=== PATIENT | female | born 1970 | race African-American/Black ===

== ENCOUNTER 2022-07-21 08:05 | Emergency (ER) | payer MEDICAID, OTHER ==
[~2022-07-21] VITALS: Ht 160 cm; Wt 74.7 kg
[2022-07-21] MEDS ORDERED: KETOROLAC TROMETH 60MG/2ML VIAL IM ONE (10:15)
[2022-07-21 10:28] VITALS: BP 138/87
[2022-07-21] MEDS ORDERED: METH750T22 PO (10:38)
[2022-07-21] MEDS ORDERED: KETO10TA PO (10:38)
== END 2022-07-21 10:54 | disposition home or self-care (01) ==
LOC: ER 08:05
DX: M54.50 Low back pain, unspecified (principal); M54.10 Radiculopathy, site unspecified; I10 Essential (primary) hypertension
CPT/HCPCS: 96372; 99283; J1885

== ENCOUNTER 2022-08-18 13:05 | Emergency (ER) | payer MEDICAID ==
[~2022-08-18] VITALS: Ht 160 cm; Wt 73.3 kg
[~2022-08-18 13:05] MED LIST: KETO10TA PO; METH750T22 PO
[2022-08-18 16:10] VITALS: BP 143/95
[2022-08-18] MEDS ORDERED: CEPH500C PO (16:24)
[2022-08-18] MEDS ORDERED: IBUP800T27 PO (16:24)
[2022-08-18] MEDS ORDERED: IBUPROFEN 800 MG TAB PO ONE (16:30)
== END 2022-08-18 16:32 | disposition home or self-care (01) ==
LOC: ER 13:05
DX: S92.514A Nondisplaced fracture of proximal phalanx of right lesser toe(s), initial encounter for closed fracture (principal); S91.131A Puncture wound without foreign body of right great toe without damage to nail, initial encounter; I10 Essential (primary) hypertension; Z79.899 Other long term (current) drug therapy; W20.8XXA Other cause of strike by thrown, projected or falling object, initial encounter; Y93.89 Activity, other specified; Y92.89 Other specified places as the place of occurrence of the external cause; Y99.8 Other external cause status
CPT/HCPCS: 73630

== ENCOUNTER 2023-11-15 07:46 | Emergency (ER) | payer MEDICAID ==
[~2023-11-15] VITALS: Ht 162.6 cm; Wt 61.3 kg
[~2023-11-15 07:46] MED LIST changes: +CEPH500C PO; +IBUP-1456 PO; +METH-1182 PO; -METH750T22 PO
[2023-11-15 08:19] LABS: Urine Bacteria NONE SEEN /hpf (None Seen); Urine Blood 3+ /uL (Negative); Urine Clarity HAZY (Clear); Urine Protein, UAD 1+ (Negative); Urine Specific Gravity 1.017 (1.001-1.035); Urine Urobilinogen Normal (Negative); Urine WBC 112 /hpf (0 - 5)
[2023-11-15 08:20] LABS: Urine Color RED (Yellow)
[2023-11-15 08:25] LABS: Basophils # (auto) 0 10 ^3/uL (0-0.2); Basophils % (auto) 0.6 % (0.0-2.0); Eosinophils # (auto) 0.1 10 ^3/uL (0-0.8); Lymphocytes # (auto) 2.8 10 ^3/uL (0.4-5.4); Monocytes # (auto) 0.4 10 ^3/uL (0-1.3)
[2023-11-15 08:27] LABS: Eosinophils % (auto) 0.7 % (0.0-7.0); Hematocrit 39.5 % (36.0-46.0); Hemoglobin 12.7 g/dL (12.2-16.2); Lymphocytes % (auto) 35.7 % (10.0-50.0); Mean Corpuscular Hemoglobin 26.1 pg (28.0-32.0); Mean Corpuscular Hgb Conc. 32.2 g/dL (32.0-36.0); Mean Corpuscular Volume 80.9 fL (80.0-100.0); Monocytes % (auto) 5.4 % (0.0-12.0); Neutrophils # (auto) 4.5 10 ^3/uL (1.6-8.6); Neutrophils % (auto) 57.6 % (37.0-80.0); Nucleated Red Blood Cells % 0.2 %; Red Blood Cells 4.88 10^6/uL (4.0-5.20); Red Cell Distribution Width 16.4 % (11.8-14.3); White Blood Cell 7.7 10^3/uL (4.4-10.8)
[2023-11-15 08:28] LABS: Chloride 109 mmol/L (98-107); Potassium 3.6 mmol/L (3.5-5.1); Sodium 141 mmol/L (136-145)
[2023-11-15 08:29] LABS: Anion Gap 4 (5-15); Calcium 9.4 mg/dL (8.5-10.1); Carbon Dioxide 28 mmol/L (20-30)
[2023-11-15 08:34] LABS: Blood Urea Nitrogen 16 mg/dL (9-23); Glucose 89 mg/dL (74-106)
[2023-11-15] MEDS: HYDROcodone-ACET 10/325MG TAB PO ONE (09:08)
[2023-11-15] MEDS: HYDROcodone-ACET 5/325MG TAB PO ONE (09:13)
[2023-11-15] MEDS ORDERED: NITR-87 PO (09:50)
[2023-11-15 10:49] VITALS: BP 140/94; PULSE 73; RESP 17; TEMP 98.7; O2SAT 99
[2023-11-15] MEDS: cefTRIAXone SOD 1,000 MG VL IM ONE (10:53)
== END 2023-11-15 10:54 | disposition home or self-care (01) ==
LOC: ER 07:46 → EDBD 07:46 → EDUNIT# 07:46 → ER 10:51
DX: N93.9 Abnormal uterine and vaginal bleeding, unspecified (principal); R10.2 Pelvic and perineal pain; N39.0 Urinary tract infection, site not specified; I10 Essential (primary) hypertension; Z79.1 Long term (current) use of non-steroidal anti-inflammatories (NSAID); Z79.899 Other long term (current) drug therapy; Z88.8 Allergy status to other drugs, medicaments and biological substances
CPT/HCPCS: 36415; 80048; 81001; 84702; 85025; 96372; 99283; J0696

== ENCOUNTER 2024-01-25 09:31 | Inpatient (IN) | payer MEDICAID ==
[~2024-01-25] VITALS: Ht 160 cm; Wt 62.9 kg
[~2024-01-25 09:31] MED LIST changes: +NITR-87 PO
[2024-01-25] MEDS: cloNIDine HCL 0.1 MG TAB PO ONE (10:00)
[2024-01-25] MEDS: amLODIPine BESYLATE 5 MG TAB PO ONE (10:04)
[2024-01-25] MEDS: ASPirin 81 mg TAB PO ONE (10:08)
[2024-01-25 10:10] LABS: Basophils # (auto) 0 10 ^3/uL (0-0.2); Basophils % (auto) 0.6 % (0.0-2.0); Eosinophils # (auto) 0.1 10 ^3/uL (0-0.8); Eosinophils % (auto) 0.9 % (0.0-7.0); Hematocrit 40.2 % (36.0-46.0); Hemoglobin 13.6 g/dL (12.2-16.2); Lymphocytes # (auto) 3.7 10 ^3/uL (0.4-5.4); Lymphocytes % (auto) 49.9 % (10.0-50.0); Mean Corpuscular Hemoglobin 27.5 pg (28.0-32.0); Mean Corpuscular Hgb Conc. 33.7 g/dL (32.0-36.0); Mean Corpuscular Volume 81.5 fL (80.0-100.0); Monocytes # (auto) 0.4 10 ^3/uL (0-1.3); Monocytes % (auto) 6.1 % (0.0-12.0); Neutrophils # (auto) 3.1 10 ^3/uL (1.6-8.6); Neutrophils % (auto) 42.5 % (37.0-80.0); Nucleated Red Blood Cells % 0.1 %; Red Blood Cells 4.93 10^6/uL (4.0-5.20); Red Cell Distribution Width 16.6 % (11.8-14.3); White Blood Cell 7.3 10^3/uL (4.4-10.8)
[2024-01-25 10:21] LABS: Urine Bacteria FEW /hpf (None Seen); Urine Blood Negative /uL (Negative); Urine Budding Yeast OCCASIONAL /hpf (None Seen); Urine Clarity Clear (Clear); Urine Color Yellow (Yellow); Urine Protein, UAD Negative (Negative); Urine Specific Gravity 1.016 (1.001-1.035); Urine Urobilinogen Normal (Negative); Urine WBC 1 /hpf (0 - 5)
[2024-01-25 10:22] LABS: Chloride 109 mmol/L (98-107); Potassium 3.8 mmol/L (3.5-5.1); Sodium 140 mmol/L (136-145)
[2024-01-25 10:23] LABS: Anion Gap 3 (5-15); Carbon Dioxide 28 mmol/L (20-30)
[2024-01-25 10:24] LABS: Calcium 10.4 mg/dL (8.5-10.1)
[2024-01-25 10:28] LABS: BUN/Creatinine Ratio 20.5 (10.0-20.0); Blood Urea Nitrogen 18 mg/dL (9-23); Glucose 104 mg/dL (74-106)
[2024-01-25 12:13] VITALS: O2SAT 98
[2024-01-25] MEDS ORDERED: HYDROcodone-ACET 5/325MG TAB PO PRN (14:30)
[2024-01-25] MEDS ORDERED: MORPHINE SULFATE INJ 2 MG/ml SYRG IV PRN ×2 (14:30)
[2024-01-25] MEDS ORDERED: ACETAMINOPHEN 325 MG TAB PO PRN (14:30)
[2024-01-25] MEDS ORDERED: ONDANSETRON HCL 4 MG/2 ML VIAL IV PRN (14:30)
[2024-01-25] MEDS ORDERED: NITROGLYCERIN 0.4 MG SL TAB SL PRN (14:30)
[2024-01-25 18:30] VITALS: PULSE 74; RESP 14; O2SAT 99
[2024-01-25] MEDS ORDERED: MEDR5TAB28 PO (19:48)
[2024-01-25] MEDS ORDERED: NIFE1TAB30 PO (19:48)
[2024-01-25] MEDS ORDERED: ATOR40TA52 PO (19:48)
[2024-01-25] MEDS ORDERED: LOSA-535 PO (19:48)
[2024-01-25] MEDS ORDERED: ASPI81CH59 PO (19:48)
[2024-01-25 20:00] VITALS: PULSE 71; PULSE 80; RESP 20; O2SAT 99
[2024-01-25 21:00] VITALS: BP 145/96; PULSE 80; RESP 20; TEMP 98; O2SAT 99
[2024-01-26 04:46] VITALS: BP 144/92; PULSE 70; RESP 20; TEMP 97.7; O2SAT 97
[2024-01-26 06:01] LABS: Basophils # (auto) 0 10 ^3/uL (0-0.2); Eosinophils # (auto) 0.1 10 ^3/uL (0-0.8); Monocytes # (auto) 0.4 10 ^3/uL (0-1.3); Neutrophils # (auto) 2.7 10 ^3/uL (1.6-8.6); Nucleated Red Blood Cells % 0.1 %
[2024-01-26 06:05] LABS: Basophils % (auto) 0.4 % (0.0-2.0); Eosinophils % (auto) 1.3 % (0.0-7.0); Hematocrit 40.3 % (36.0-46.0); Hemoglobin 13.5 g/dL (12.2-16.2); Lymphocytes % (auto) 48.5 % (10.0-50.0); Mean Corpuscular Hemoglobin 27.2 pg (28.0-32.0); Mean Corpuscular Hgb Conc. 33.6 g/dL (32.0-36.0); Monocytes % (auto) 6.7 % (0.0-12.0); Neutrophils % (auto) 43.1 % (37.0-80.0); Red Blood Cells 4.98 10^6/uL (4.0-5.20); Red Cell Distribution Width 16.3 % (11.8-14.3); White Blood Cell 6.2 10^3/uL (4.4-10.8)
[2024-01-26 06:24] LABS: Alanine Aminotransferase 37 U/L (7-40); Albumin 4.4 g/dL (3.2-4.8); Alkaline Phosphatase 67 U/L (46-116); Anion Gap 1 (5-15); Aspartate Aminotransferase 26 U/L (13-40); BUN/Creatinine Ratio 17.5 (10.0-20.0); Blood Urea Nitrogen 14 mg/dL (9-23); Calcium 10.1 mg/dL (8.5-10.1); Carbon Dioxide 27 mmol/L (20-30); Chloride 111 mmol/L (98-107); Glucose 101 mg/dL (74-106); Sodium 139 mmol/L (136-145)
[2024-01-26 06:25] LABS: Bilirubin, Total 0.3 mg/dL (0.2-1.0)
[2024-01-26 08:30] VITALS: PULSE 71; PULSE 75; RESP 20; O2SAT 99
[2024-01-26 08:32] VITALS: BP 129/82; PULSE 73; RESP 18; TEMP 97.8; O2SAT 99
[2024-01-26] MEDS: ENOXAPARIN SOD 40 MG/0.4 ML SYRINGE SC SCH (09:46)
[2024-01-26 13:00] VITALS: BP 124/86; PULSE 83; RESP 18; TEMP 98.3; O2SAT 94
[2024-01-26 13:10] LABS: INR 0.99 (0.9-1.15); Prothrombin Time 10.5 sec (9.3-11.8)
[2024-01-27 10:30] LABS: Free T3 3.47 pg/mL (2.3-4.2)
[2024-01-27 10:31] LABS: Free T4 (Free Thyroxine) 1.07 ng/dL (0.89-1.76)
== END 2024-01-26 15:00 | disposition home or self-care (01) | DRG 203 ==
LOC: ER 09:36 → TELE 14:21 → TELE-WESTW 17:58
PROVIDERS: ADMIT Internal Medicine; ATTEND Internal Medicine
DX: M94.0 Chondrocostal junction syndrome [Tietze] (principal); E03.9 Hypothyroidism, unspecified; E04.1 Nontoxic single thyroid nodule; F12.90 Cannabis use, unspecified, uncomplicated; F17.200 Nicotine dependence, unspecified, uncomplicated; R07.89 Other chest pain; I10 Essential (primary) hypertension; Z88.8 Allergy status to other drugs, medicaments and biological substances; Z79.899 Other long term (current) drug therapy; Z79.1 Long term (current) use of non-steroidal anti-inflammatories (NSAID)
CPT/HCPCS: 36415; 76536; 80048; 80053; 81001; 84439; 84443; 84481; 84484; 85025; 85610; 93005; 93306; G0378

== ENCOUNTER 2024-07-08 09:15 | Emergency (ER) | payer MEDICAID ==
[~2024-07-08] VITALS: Ht 160 cm; Wt 64.0 kg
[~2024-07-08 09:15] MED LIST changes: +ASPI81CH59 PO; +ATOR40TA52 PO; -CEPH500C PO; -IBUP-1456 PO; -KETO10TA PO; +LOSA-535 PO; -METH-1182 PO; +NIFE1TAB30 PO; -NITR-87 PO
[2024-07-08 09:37] LABS: Urine Bacteria None Seen /hpf (None Seen)
--- NOTE | 2024-07-08 09:45 | ED.PDOC ---
General HPI Comments 53 year old presents for vaginal itching x 2 days after intercourse Has not tried medications for this No other symptoms. 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 07/08/24 Doxycycline Hyclate (DOXYCYCLINE HYCLATE) 100 Mg Tab, 1 TAB PO BID for 7 Days, #14 TAB 0 Refills Prov:GREG DIAZ HOME IMPROVEMENT CONTRACTOR 07/08/24 Reported Medications Atorvastatin Calcium (ATORVASTATIN CALCIUM) 40 Mg Tab, 1 TAB PO DAILY, #30 TAB 5 Refills 01/25/24 Aspirin (Aspirin Low Dose) 81 Mg Chw, 1 TAB PO DAILY, #30 TAB 3 Refills 01/25/24 Nifedipine (Nifedipine Er) 60 Mg Tab, 1 TAB PO DAILY, #30 TAB 5 Refills 01/25/24 Losartan Potassium (Losartan Potassium) 100 Mg Tab, 1 TAB PO DAILY, #30 TAB 5 Refills 01/25/24 Information Source: Patient Mode of Arrival: Ambulatory Past Medical History PAST MEDICAL HISTORY: HTN, Thyroid Surgical History: Denies all surgeries SUSTAINABILITY ENGINEER History: Denies all SUSTAINABILITY ENGINEER Hx Family History Family History: Reviewed,noncontributory to illness Social History Smoker: Non-Smoker Alcohol: Denies ETOH Use Drugs: Marijuana Lives In: Home All Other Systems: Reviewed and Negative (Per HPI) Physical Exam General Appearance: No Apparent Distress, Normal HEENT: Head (Normocephalic), Normal ENT Inspection, Pharynx Normal, TMs Normal Neck: Full Range of Motion, Non-Tender, Normal, Normal Inspection Respiratory: Chest Non-Tender, Lungs Clear, No Accessory Muscle Use, No Respiratory Distress, Normal Breath Sounds Cardiovascular: No Murmur, No Gallop, Regular Rate/Rhythm Breast Exam: Deferred Gastrointestinal: No Organomegaly, Non Tender, No Pulsatile Mass, Normal Bowel Sounds, Soft Genitalia: Deferred Pelvic: Deferred Rectal: Deferred Extremities: No calf tenderness, Normal capillary refill, Normal inspection, Normal range of motion, Non-tender, No pedal edema Musculoskeletal : Apperance: Normal Neurologic: Alert, No Motor Deficits, Normal Affect, Normal Mood, No Sensory Deficits Cerebellar Function: Normal Reflexes: Normal Skin: Dry, Normal Color, Warm Lymphatic: No Adenopathy Was a procedure done? Was a procedure done?: No Differential Diagnosis Kidney stone (Female): Other Urinary Problem (Female): PID, UTI, Vaginitis X-Ray, Labs, Meds, VS Vital Signs Date Time Temp Pulse Resp B/P (MAP) Pulse Ox O2 Delivery O2 Flow Rate FiO2 07/08/24 09:52 98.3 87 16 157/100 (119) 96 98.3 07/08/24 09:52 87 16 96 Room Air 07/08/24 09:21 98.3 87 16 157/100 (119) 96 152/97 (115) Lab Test 07/08/24 09:55 07/08/24 09:28 Range/Units Vaginal WBC (Wet Prep) Moderate Vaginal RBC (Wet Prep) Few Vaginal Epithelial Cells (Wet Prep) Many Vaginal Bacteria (Wet Prep) Many Vaginal Trichomonas (Wet Prep) Not present Vaginal Yeast (Wet Prep) None seen Vaginal Clue Cells (Wet Prep) None seen Urine Color Colorless Yellow Urine Clarity Turbid H Clear Urine pH 7.5 5.0-9.0 Urine Specific [place] 1.014 1.001-1.035 Urine Protein Negative Negative Urine Ketones Negative Negative Urine Blood Trace H Negative /uL Urine Nitrite Negative Negative Urine Bilirubin Negative Negative Urine Urobilinogen Normal Negative mg/dL Urine Leukocyte Esterase Negative Negative /uL Urine RBC None seen 0 - 4 /hpf Urine WBC 2 0 - 5 /hpf Urine Squamous Epithelial Cells Few <5 /hpf Urine Bacteria None seen None Seen /hpf Urine Glucose Normal Normal mg/dL Chlamydia trachomatis ([facility]) Pending Neisseria gonorrhoeae ([facility]) Pending Current Medications Medications (Trade) Dose Ordered Sig/Adolph Route Start Time Stop Time Status Last Admin Ceftriaxone Sodium (Rocephin) 1,000 mg ONCE ONCE IM 07/08/24 11:30 07/08/24 11:31 DC 07/08/24 11:26 X-Ray, Labs, Meds, VS Comment History and physical exam consistent with possible STI. Based on show decision- making trigger to empiric treatment Per CDC guidelines we will treat with Doxy 100 mg twice daily x7 days F/u on labs. Notify sex partners and refer them to get tested Advise abstinence from sex x7 days after course completed Repeat chlamydia test in 3 months Return for any signs and symptoms of PID Time of 1ST Reevaluation: 11:15 Reevaluation 1ST: Improved Patient Education/Counseling: Diagnosis, Treatment Family Education/Counseling: Diagnosis, Treatment Departure 1 Departure Time of Disposition: 11:20 Impression: Primary Impression: Bacterial vaginosis Additional Impression: At risk for sexually transmitted disease due to unprotected sex Disposition: 01 HOME / SELF CARE / HOMELESS Condition: Stable e-Prescriptions Metronidazole Vaginal (Metronidazole Vaginal) 0.75 % Gel 1 APPLIC VG QPM for 7 Days, #70 GRAMS 0 Refills Prov: GREG DIAZ NP 07/08/24 Doxycycline Hyclate (DOXYCYCLINE HYCLATE) 100 Mg Tab 1 TAB PO BID for 7 Days, #14 TAB 0 Refills Prov: GREG DIZA NP 07/08/24 Discharged With: Self Critical Care Note Critical Care Time?: No Stability Stability form required: No Heart Score Heart Score: Heart Score Response (Comments) Value History N/A 0 EKG N/A 0 Age N/A 0 Risk Factors N/A 0 Troponin N/A 0 Total 0 GREG DIAZ NP Jul 08, 2024 09:45
[2024-07-08 09:47] LABS: Urine Blood TRACE /uL (Negative); Urine Clarity Turbid (Clear); Urine Color Colorless (Yellow); Urine Protein, UAD Negative (Negative); Urine Specific Gravity 1.014 (1.001-1.035); Urine Urobilinogen Normal (Negative); Urine WBC 2 /hpf (0 - 5); Urine pH 7.5 (5.0-9.0)
[2024-07-08 09:52] VITALS: BP 157/100; PULSE 87; RESP 16; TEMP 98.3; O2SAT 96
[2024-07-08 10:32] LABS: Vaginal Bacteria Many; Vaginal Clue Cells None Seen; Vaginal Epithelial Cells Many; Vaginal Trichomonas Not Present
[2024-07-08] MEDS ORDERED: DOXY-286 PO (11:21)
[2024-07-08] MEDS ORDERED: METR0.7511 VG (11:21)
[2024-07-08] MEDS: cefTRIAXone SOD 1,000 MG VL IM ONE (11:26)
[2024-07-10 07:06] LABS: Chlamydia Trachomatis, NAA Negative (Negative); Neisseria gonorrhoeae, NAA Negative (Negative)
== END 2024-07-08 11:32 | disposition home or self-care (01) ==
LOC: ER 09:15
DX: N76.0 Acute vaginitis (principal); B96.89 Other specified bacterial agents as the cause of diseases classified elsewhere; A63.8 Other specified predominantly sexually transmitted diseases; I10 Essential (primary) hypertension; F12.10 Cannabis abuse, uncomplicated; Z79.82 Long term (current) use of aspirin; Z79.899 Other long term (current) drug therapy; Z88.6 Allergy status to analgesic agent
CPT/HCPCS: 81001; 87210; 87491; 87591; 96372; 99283; J0696